=== PATIENT | female | born 1970 | race Caucasian/White ===

== ENCOUNTER 2017-02-15 22:01 | Emergency (ER) | payer BC ==
--- NOTE | ~2017-02-15 | ER ---
PATIENT'S NAME: FLORECITA MILLER [facility] AGE: 46 Y [address] ROOM: [place] [address] LOCATION: [facility] ADMIT DATE: 02/15/2017 ER/Outpatient Report DISCHARGE DATE: 02/15/2017 FAMILY PHYSICIAN: PHYSICIAN, NO ATTENDING PHYSICIAN: Claude Felder TIME SEEN: 2215 hours. HISTORY OF PRESENT ILLNESS: The patient is a 46-year-old female. She said night she went to break up a fight between her 2 dogs, she thought she was bit on the bottom of her left foot. The patient said since then she has been cleaning that daily, using some antiseptic soap. Today, she noticed some increased swelling of her toes and some redness on the top of her foot. ALLERGIES: NONE. IMMUNIZATIONS: Unknown when last tetanus. CURRENT MEDICATIONS: Albuterol. SURGERIES: Two previous , tonsillectomy, and tubal ligation. SOCIAL HISTORY: Nonsmoker. REVIEW OF SYSTEMS: GENERAL: No fever or chills. SKIN: A skin laceration-type wound to the bottom of her left foot from possible dog bite. PHYSICAL EXAMINATION: VITAL SIGNS: Reviewed. She was afebrile. GENERAL: She is alert and cooperative. MUSCULOSKELETAL: Exam of the left foot on the plantar side, on the ball of her foot, there was a probable 2-cm straight-type laceration, it was dry, no drainage. The top of her foot between the 3rd and 4th toe appeared slightly red and tender. ASSESSMENT: PATIENT'S NAME: FLORECITA MILLER [facility] AGE: 46 Y [address] ROOM: [place] [address] LOCATION: [facility] ADMIT DATE: 02/15/2017 ER/Outpatient Report DISCHARGE DATE: 02/15/2017 FAMILY PHYSICIAN: PHYSICIAN, NO ATTENDING PHYSICIAN: Claude Felder Dog bite, plantar surface, left foot. PLAN: Augmentin 875 one b.i.d. Recommend continue wound care. Wash twice daily with soap and water. Topical antibiotic. Follow up in 48 hours if not showing improvement. Tetanus update was also completed. SAIGE NASCIMENTO FOR CLAUDE FELDER MD [email or web address]/modl /[id number] d: 02/16/17 0103 t: 02/18/17 1202, OUTPATIENT REPORT
== END 2017-02-15 22:56 | disposition disaster alternative care site (69) ==
LOC: GACC 22:01
DX: S91.352A Open bite, left foot, initial encounter (principal); Z23 Encounter for immunization; Z79.899 Other long term (current) drug therapy; Z98.51 Tubal ligation status; Z98.890 Other specified postprocedural states; W54.0XXA Bitten by dog, initial encounter